=== PATIENT | female | born 1980 | race Hispanic/Latino ===

== ENCOUNTER 2021-04-25 10:13 | Inpatient (IN) | payer BC, SELFPAY ==
--- OUTSIDE RECORDS SUMMARY | 2021-04-25 10:15 | XMS REPORT | Continuity of Care Document ---
:1980 Author Organization [facility] t Address [address] [place] [address] Care Team Providers Name Role Phone Jd Mora MD Attending Clinician Problems This patient has no known problems. Allergies, Adverse Reactions, Alerts This patient has no known allergies or adverse reactions. Medications This patient has no known medications. Procedures This patient has no known procedures. Encounters Start End Encounter Admission Attending Care Care Encounter Source Date/Time Date/Time Type Type Clinicians Facility Department ID 2020-02-17 2020-02-17 Emergency Morgan [facility] [id number] 17:50:41 18:51:00 Jd Nicole [id number] [place] [id number] [place] [id number] Results This patient has no known results.
[2021-04-25 10:50] LABS: Urine Blood 3+ (Negative); Urine Glucose Trace (Negative); Urine Protein 3+ (Negative); Urine Specific Gravity >=1.030 (1.005-1.030)
[2021-04-25 11:08] LABS: Absolute Lymphocytes (CBC) 0.6 K/uL (0.7-4.9); Basophils % 0.1 % (0-1.3); Hematocrit 37.3 % (36.0-45.0); Lymphocytes % 4.7 % (15.3-44.8)
[2021-04-25 11:15] LABS: Urine Specific Gravity/Preg >1.030 (1.005-1.030)
[2021-04-25 11:18] LABS: Urine Bacteria >50 /HPF (<20)
[2021-04-25 11:20] LABS: Albumin 3.4 g/dL (3.4-5.0); Bilirubin Direct 0.7 mg/dL (0-0.2); Bilirubin Total 1.2 mg/dL (0.2-1.0); Potassium 4.1 mmol/L (3.5-5.1); Protein, Total 7.9 g/dL (6.4-8.2)
[2021-04-25] MEDS ORDERED: ONDANSETRON 4 MG/2 ML VIAL ONE (11:22)
[2021-04-25] MEDS ORDERED: KETOROLAC 30 MG/ML INJ ONE (11:22)
[2021-04-25] MEDS ORDERED: NA CHLORIDE 0.9% 1,000 ML ONE ×2 (11:22→15:38)
--- NOTE | 2021-04-25 11:42 | RAD REPORT ---
EXAM DESCRIPTION: CT - Abdomen Pelvis Wo Contrast - 04/25/2021 11:10 am CLINICAL HISTORY: Abdominal pain COMPARISON: None TECHNIQUE: Computed axial tomography of the abdomen and pelvis was obtained. IV and oral contrast we re not requested. All CT scans are performed using dose optimization technique as appropriate and may include automated exposure control or mA/KV adjustment according to patient size. FINDINGS: The evaluation of solid organs, vessels and bowel is limited secondary to the lack of con trast administration. The spleen measures 14 centimeters. The liver, pancreas, adrenals and kidneys appear grossly normal. The appendix is normal. There is no evidence of diverticulitis. An IUD is present within the uterine fundus. No adnexal mass. Tiny umbilical hernia contains fat IMPRESSION: Mild splenomegaly
[2021-04-25 11:46] LABS: Anisocytosis 1+; Blood Morphology Comment NOTED (NOT SEEN); Platelet Estimate ADEQ
--- NOTE | 2021-04-25 11:57 | EDPHYS ---
Physician Documentation [facility] Name: Nancy Freeman Age: 40 yrs Sex: Female : 1980 Arrival Date: 04/25/2021 Time: 10:16 Bed 23 Private MD: ED Physician Garland Grewal HPI: 04/25 11:59 This 40 yrs old Female presents to ER via Wheelchair with complaints of Cough, kb Nausea, Constipation, Fatigue. 11:59 The patient has not recently seen a physician. kb 11:59 The patient presents with abdominal pain in the left upper quadrant. Onset: The kb symptoms/episode began/occurred 5 day(s) ago. The symptoms do not radiate. Associated signs and symptoms: Pertinent positives: constipation, nausea. The symptoms are described as constant. Modifying factors: The symptoms are alleviated by nothing, the symptoms are aggravated by nothing. Severity of pain: At its worst the pain was moderate in the emergency department the pain is unchanged. The patient has not experienced similar symptoms in the past. Pt reports cough, nausea, malaise, low back pain for 5 days. States she had constipation last week and when she finally went to the restroom there was some bleeding, but bowel movements have been normal without bleeding since then. States she didn't have a bm yesterday or today. no fever. 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 - Social history:: Smoking status: Patient denies any tobacco usage or history of. ROS: 14:02 Cardiovascular: Negative for chest pain, palpitations, and edema. kb 14:02 Constitutional: Positive for chills, fatigue, malaise. 14:02 Abdomen/GI: Positive for abdominal pain, nausea, constipation. 14:02 Back: Positive for pain at rest. 14:02 All other systems are negative. Exam: 14:02 Constitutional: This is a well developed, well nourished patient who is awake, alert, kb and in no acute distress. Head/Face: Normocephalic, atraumatic. ENT: Moist Mucous membranes Cardiovascular: Regular rate and rhythm with a normal S1 and S2. No gallops, murmurs, or rubs. No pulse deficits. Respiratory: Respirations even and unlabored. No increased work of breathing, no retractions or nasal flaring. Skin: Warm, dry with normal turgor. Normal color. MS/ Extremity: Pulses equal, no cyanosis. Neurovascular intact. Full, normal range of motion. Neuro: Awake and alert, GCS 15, oriented to person, place, time, and situation. Moves all extremities. Normal gait. Psych: Awake, alert, with orientation to person, place and time. Behavior, mood, and affect are within normal limits. 14:02 Abdomen/GI: Inspection: obese Bowel sounds: normal, Palpation: soft, in all quadrants, moderate abdominal tenderness, in the left upper quadrant. 14:02 Back: pain, that is moderate, of the low back area, ROM is normal. Vital Signs: 10:22 BP 146 / 76; Pulse 106; Resp 18; Temp 98.5(O); Pulse Ox 99% on R/A; ph 10:45 BP 142 / 95; Pulse 118; Resp 20; Pulse Ox 97% ; vg1 11:15 BP 140 / 96; Pulse 103; Resp 18; Pulse Ox 99% ; vg1 12:15 BP 115 / 94; Pulse 100; Resp 16; Pulse Ox 98% on R/A; vg1 12:16 Pain 5/10; vg1 12:17 Weight 149.69 kg; Height 5 ft. 4 in. (162.56 cm); vg1 13:00 BP 110 / 72; Pulse 102; Resp 16; Pulse Ox 98% on R/A; vg1 13:45 BP 113 / 69; Pulse 95; Resp 16; Pulse Ox 99% on R/A; vg1 17:49 BP 126 / 88; Pulse 105; Pulse Ox 100% on R/A; mb4 12:17 Body Mass Index 56.64 (149.69 kg, 162.56 cm) vg1 MDM: 10:31 Patient medically screened. kb 11:51 Data reviewed: vital signs, nurses notes. Data interpreted: Pulse oximetry: on room air kb is 99 %. Interpretation: normal. 11:56 Counseling: I had a detailed discussion with the patient and/or guardian regarding: the kb historical points, exam findings, and any diagnostic results supporting the discharge/admit diagnosis, lab results, radiology results, the need for further work-up and treatment in the hospital. Physician consultation: Shiva Boateng was contacted at 11:56, regarding admission, to the medical/surgical unit. patient's condition, and will see patient in ED, shortly. 04/25 10:31 Order name: Basic Metabolic Panel; Complete Time: 11:31 kb 04/25 10:31 Order name: CBC with Diff; Complete Time: 11:47 kb 04/25 10:31 Order name: Hepatic Function; Complete Time: 11:31 kb 04/25 10:31 Order name: Lipase; Complete Time: 11:31 kb 04/25 10:50 Order name: Urine Dipstick-Ancillary; Complete Time: 10:54 EDMS 04/25 10:53 Order name: Urine Microscopic Only; Complete Time: 11:31 vg1 04/25 10:53 Order name: Urine --Ancillary (enter results); Complete Time: 11:31 bd 04/25 11:08 Order name: Abdomen ; Complete Time: 11:45 EDMS 04/25 11:43 Order name: Manual Differential; Complete Time: 11:47 EDMS 04/25 11:58 Order name: COVID-19 : Document "Date of Symptom Onset" if Symptomatic. kb 04/25 13:37 Order name: CREATININE WHOLE BLOOD; Complete Time: 13:37 EDMS 04/25 14:58 Order name: SARS-COV-2 RT PCR; Complete Time: 15:08 EDMS 04/25 10:31 Order name: IV Saline Lock; Complete Time: 10:53 kb 04/25 10:31 Order name: Labs collected and sent; Complete Time: 10:53 kb 04/25 10:37 Order name: Urine Dipstick-Ancillary (obtain specimen); Complete Time: 10:53 kb 04/25 12:04 Order name: Chest Single View XRAY; Complete Time: 13:12 kb Administered Medications: 11:14 Drug: NS 0.9% 1000 ml Route: IV; Rate: 1000 ml; Site: right antecubital; vg1 14:36 Follow up: IV Status: Completed infusion; IV Intake: 1000ml vg1 11:15 Drug: Zofran (Ondansetron) 4 mg Route: IVP; Site: right antecubital; vg1 12:16 Follow up: Response: No adverse reaction; Nausea unchanged vg1 11:17 Drug: Ketorolac 30 mg Route: IVP; Site: right antecubital; vg1 12:16 Follow up: Pain 5/10 Adult; Response: No adverse reaction; Pain is decreased vg1 12:16 Drug: Rocephin (cefTRIAXone) 1 grams Route: IV; Rate: calculated rate; Site: right vg1 antecubital; 14:35 Follow up: Response: No adverse reaction; IV Status: Completed infusion vg1 Disposition: 04/26 08:46 Co-signature as Attending Physician, Garland Grewal MD I agree with the assessment and kdr plan of care. Disposition Summary: 04/25/21 11:57 Hospitalization Ordered Hospitalization Status: Observation kb Provider: Shiva Boateng Condition: Stable kb Problem: new kb Symptoms: are unchanged kb Bed/Room Type: Standard kb Location: Telemetry/MedSurg (observation)(04/25/21 21:50) tl1 Room Assignment: [facility](04/25/21 21:50) tl1 Diagnosis - Splenomegaly, not elsewhere classified kb - Tubulo-interstitial nephritis, not specified as acute or chronic kb - UTI/ Urinary tract infection, site not specified kb - Acute kidney failure, unspecified kb Forms: - Medication Reconciliation Form kb - SBAR form kb Signatures: Dispatcher [employer] EDMS Omaira Daniels, PARTY BUS DRIVER-C PARTY BUS DRIVER-Garland Holt MD MD [facility] Nata Durbin RN RN Jessica Junior RN RN tl1 Alice Fernández, RN KIKI Gila Lazcano, RN RN vg1 Corrections: (The following items were deleted from the chart) 04/25 11:08 10:38 Abdomen Pelvis W Con+CT.RAD.BRZ ordered. EDMS EDMS 11:43 11:20 CBC Smear Scan ordered. EDMS EDMS 14:09 11:57 Telemetry/MedSurg (observation) kb ss 14:09 11:57 kb ss 21:50 14:09 BR ER HOLD ss tl1 21:50 14:09 ERHOLD- ss tl1
--- NOTE | 2021-04-25 11:57 | ER ---
Nurse's Notes [facility] Name: Nancy Freeman Age: 40 yrs Sex: Female : 1980 Arrival Date: 04/25/2021 Time: 10:16 Bed 23 Private MD: Diagnosis: Splenomegaly, not elsewhere classified;Tubulo-interstitial nephritis, not specified as acute or chronic;UTI/ Urinary tract infection, site not specified;Acute kidney failure, unspecified Presentation: 04/25 10:22 Chief complaint: Patient states: L sided abdominal pain, nausea, constipation, bright ph red rectal bleeding, chills, and sweating. Symptoms began Friday. Coronavirus screen: Client denies travel out of the [place] in the last 14 days. Ebola Screen: No symptoms or risks identified at this time. Initial Sepsis Screen: Does the patient meet any 2 criteria? No. Patient's initial sepsis screen is negative. Does the patient have a suspected source of infection? No. Patient's initial sepsis screen is negative. Risk Assessment: Do you want to hurt yourself or someone else? Patient reports no desire to harm self or others. Onset of symptoms was April 25, 2021. 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 - Social history:: Smoking status: Patient denies any tobacco usage or history of. Screenin:36 Abuse screen: Denies threats or abuse. Nutritional screening: No deficits noted. vg1 Tuberculosis screening: No symptoms or risk factors identified. Fall Risk No fall in past 12 months (0 pts). No secondary diagnosis (0 pts). IV access (20 points). Ambulatory Aid- Crutches/Cane/Walker (15 pts). Gait- Normal/Bed Rest/Wheelchair (0 pts) Mental Status- Oriented to own ability (0 pts). Total Burnette Fall Scale indicates Low Risk Score (25-44 pts). Fall prevention measures have been instituted. Side Rails Up X 2 Placed close to Nursing Station Family Present and informed to notify staff if they need to leave bedside. Assessment: 10:35 General: Appears in no apparent distress. uncomfortable, Behavior is calm, cooperative. vg1 Pain: Complains of pain in left upper quadrant and lower back Pain currently is 10 out of 10 on a pain scale. Pain began about a week ago Noted to be grimacing, moaning. Neuro: Level of Consciousness is awake, alert, obeys commands, Oriented to person, place, time, situation. Cardiovascular: Patient's skin is warm and dry. Respiratory: Reports cough that is Airway is patent Respiratory effort is even, unlabored. GI: Abdomen is round obese, Last BM was April 22, 2021. Reports nausea. : No signs and/or symptoms were reported regarding the genitourinary system. EENT: No signs and/or symptoms were reported regarding the EENT system. Derm: Skin is intact, is healthy with good turgor. Musculoskeletal: Circulation, motion, and sensation intact. 12:17 Reassessment: Patient appears in no apparent distress at this time. Patient and/or vg1 family updated on plan of care and expected duration. Pain level reassessed. Patient is alert, oriented x 3, equal unlabored respirations, skin warm/dry/pink. Pt states is still feeling nauseous and pain has subsided to 5/10 from 10/10. 13:00 Reassessment: Patient appears in no apparent distress at this time. No changes from vg1 previously documented assessment. Patient and/or family updated on plan of care and expected duration. Pain level reassessed. Patient is alert, oriented x 3, equal unlabored respirations, skin warm/dry/pink. 14:03 Reassessment: Pt resting with eyes closed. vg1 Vital Signs: 10:22 BP 146 / 76; Pulse 106; Resp 18; Temp 98.5(O); Pulse Ox 99% on R/A; ph 10:45 BP 142 / 95; Pulse 118; Resp 20; Pulse Ox 97% ; vg1 11:15 BP 140 / 96; Pulse 103; Resp 18; Pulse Ox 99% ; vg1 12:15 BP 115 / 94; Pulse 100; Resp 16; Pulse Ox 98% on R/A; vg1 12:16 Pain 5/10; vg1 12:17 Weight 149.69 kg; Height 5 ft. 4 in. (162.56 cm); vg1 13:00 BP 110 / 72; Pulse 102; Resp 16; Pulse Ox 98% on R/A; vg1 13:45 BP 113 / 69; Pulse 95; Resp 16; Pulse Ox 99% on R/A; vg1 17:49 BP 126 / 88; Pulse 105; Pulse Ox 100% on R/A; mb4 12:17 Body Mass Index 56.64 (149.69 kg, 162.56 cm) vg1 ED Course: 10:16 Patient arrived in ED. as 10:18 Omaira Daniels FNP-C is PHCP. kb 10:18 Garland Grewal MD is Attending Physician. kb 10:24 Triage completed. ph 10:26 Arm band placed on Patient placed in an exam room, on a stretcher. ph 10:30 Gila Lazcano RN is Primary Nurse. vg1 10:30 Inserted saline lock: 20 gauge in right antecubital area, using aseptic technique. vg1 ,using aseptic technique. completed by KIKI Corbin Blood collected. 10:36 Patient has correct armband on for positive identification. Bed in low position. Call vg1 light in reach. Side rails up X 1. 11:09 Abdomen In Process Unspecified. EDMS 11:57 Shiva Boateng is Hospitalizing Provider. kb 12:15 COVID swab sent to lab. vg1 12:43 Chest Single View XRAY In Process Unspecified. EDMS 14:36 No provider procedures requiring assistance completed. Patient admitted, IV remains in vg1 place. 15:56 Fall risk band placed. mb4 22:19 Report given to Karley Schroeder RN. vg1 Administered Medications: 11:14 Drug: NS 0.9% 1000 ml Route: IV; Rate: 1000 ml; Site: right antecubital; vg1 14:36 Follow up: IV Status: Completed infusion; IV Intake: 1000ml vg1 11:15 Drug: Zofran (Ondansetron) 4 mg Route: IVP; Site: right antecubital; vg1 12:16 Follow up: Response: No adverse reaction; Nausea unchanged vg1 11:17 Drug: Ketorolac 30 mg Route: IVP; Site: right antecubital; vg1 12:16 Follow up: Pain 5/10 Adult; Response: No adverse reaction; Pain is decreased vg1 12:16 Drug: Rocephin (cefTRIAXone) 1 grams Route: IV; Rate: calculated rate; Site: right vg1 antecubital; 14:35 Follow up: Response: No adverse reaction; IV Status: Completed infusion vg1 Intake: 14:36 IV: 1000ml; Total: 1000ml. vg1 Outcome: 11:57 Decision to Hospitalize by Provider. kb 14:36 Admitted to ER Hold. Please see [facility] for further documentation. vg1 14:36 Condition: stable 14:36 Instructed on the need for admit. 22:34 Patient left the ED. em Signatures: Dispatcher [employer] EDOmaira Saucedo, SATELLITE SPECIALIST-C ISIDORO-Demetrio Skaggs, RN RN em Shruthi Ritchie Patricia, RN RN Yessenia Wilson Victoria, RN RN vg1 Corrections: (The following items were deleted from the chart) 11:20 11:15 BP 140 / 96; Pulse 110bpm; Resp 18bpm; Pulse Ox 99%; vg1 vg1
[2021-04-25] MEDS ORDERED: CEFTRIAXONE/SWI 1gm 1 GM/10 ML SYR ONE (12:32)
--- NOTE | 2021-04-25 13:10 | RAD REPORT ---
EXAM DESCRIPTION: RAD - Chest Single View - 04/25/2021 12:43 pm CLINICAL HISTORY: COUGH COMPARISON: August 2009 TECHNIQUE: AP portable chest image was obtained 04/25/2021 12:43 pm . FINDINGS: Lungs are clear. Large body habitus accentuates chest findings. Heart and vasculature are normal. No measurable pleural effusion and no pneumothorax. No acute bony abnormality seen. No acute aortic findings suspected. IMPRESSION: No acute cardiopulmonary process. No significant change from comparison study.
--- NOTE | 2021-04-25 13:11 | P.HP ---
Certification for Inpatient Patient admitted to: Inpatient With expected LOS: >2 Midnights Practitioner: I am a practitioner with admitting privileges, knowledge of patient current condition, hospital course, and medical plan of care. Services: Services provided to patient in accordance with Admission requirements found in Title 42 Section 412.3 of the Code of Federal Regulations Patient History Date of Service: 04/25/21 Reason for admission: Left flank pain History of Present Illness: 40-year-old morbidly obese woman with a history of lupus and rheumatoid arthritis presented to the emergency department with a complaint of left flank pain, fever, chills, dry heaving of about 4 days duration. Patient also reports increased urinary frequency but denies dysuria. She has been taking Aleve for her pain without improvement. Her UA in the emergency department suggest UTI. Her creatinine is elevated to 2. CT abdomen and pelvis demonstrated mild splenomegaly. Patient has IUD in place. She also has mild leukocytosis. There is a concern for acute pyelonephritis with acute renal failure. Patient admitted for further management. Allergies No Known Allergies Allergy (Unverified 06/29/12 12:31) Home Medications: Adalimumab [Humira 40 MG/0.8 ML] 40 mg SQ Q-VISIT 12/19/14 Ferrous Sulfate [Feosol] 325 mg PO TID 12/19/14 Folic Acid 1 mg PO DAILY 12/19/14 Lisinopril/Hydrochlorothiazide [Zestoretic 20-12.5 mg Tablet] 1 each PO DAILY 12/19/14 Methotrexate [Methotrexate*] 20 mg PO EVERY 7TH DAY 12/19/14 Naproxen [Naprosyn] 500 mg PO BID 12/19/14 predniSONE [Deltasone] 5 mg PO DAILY 12/19/14 sulfaSALAzine [AZULFIDINE EN-tabs*] 1,000 mg PO BID 12/19/14 - Past Medical/Surgical History -: Lupus -: Rheumatoid arthritis -: Morbid obesity -: IUD implantation - Family History Mother -: Diabetes, Liver disease - Social History Smoking Status: Never smoker CD- Drugs: No Place of Residence: Home Review of Systems Other: Except as documented, all other systems reviewed and negative. Physical Examination - Physical Exam General: Alert, In no apparent distress, Oriented x3, Obese HEENT: Atraumatic, Normocephalic, PERRLA, Mucous membr. moist/pink, EOMI, Sclerae nonicteric Neck: Supple, JVD not distended Respiratory: Clear to auscultation bilaterally, Normal air movement Cardiovascular: No edema, Regular rate/rhythm, Normal S1 S2, No murmurs Capillary refill: <2 Seconds Gastrointestinal: Normal bowel sounds, Soft and benign, Non-distended, Tenderness (Right costovertebral angle tenderness) Musculoskeletal: No swelling, No tenderness Integumentary: No rashes, No erythema Neurological: Normal strength at 5/5 x4 extr, Cranial nerves 3-12 intact - Studies Laboratory Data (last 24 hrs) 04/25/21 10:47: WBC 13.00 H, Hgb 11.7 L, Hct 37.3, Plt Count 166 04/25/21 10:47: Sodium 134 L, Potassium 4.1, BUN 28 H, Creatinine 2.08 H, Glucose 122 H, Total Bilirubin 1.2 H, AST 31, ALT 28, Alkaline Phosphatase 132 H, Lipase 28 L Assessment and Plan - Problems (Diagnosis) (1) Acute pyelonephritis Current Visit: Yes Status: Acute (2) Acute renal failure Current Visit: Yes Status: Acute (3) Lupus Current Visit: Yes Status: Acute (4) Rheumatoid arthritis Current Visit: Yes Status: Acute (5) Morbid obesity Current Visit: Yes Status: Acute - Plan Admit to the medical floor Start supportive measures with IV hydration with IV normal saline. Monitor renal function for improvement. Obtain blood cultures. Urine culture. Start IV Rocephin. Follow culture results. Pain management as needed. Mild LFT elevation likely secondary to morbid obesity and possible hepatic steatosis. - Advance Directives Does patient have a Living Will: No Does patient have a Durable POA for Healthcare: No
[2021-04-25] MEDS: NA CHLORIDE 0.9% 1,000 ML IV SCH (15:03)
[2021-04-25] MEDS: HEPARIN 5000 UNIT/ML 1 ML VIAL SQ SCH (17:00)
[2021-04-25] MEDS ORDERED: HEPARIN 5000 UNIT/ML 1 ML VIAL ONE (17:50)
[2021-04-25] MEDS: MORPHINE 2 MG/ML SYR IV PRN (20:38)
[2021-04-25] MEDS ORDERED: MORPHINE 2 MG/ML SYR ONE (20:54)
[2021-04-25 22:46] VITALS: BMI 58.9
[2021-04-25] MEDS: ACETAMINOPHEN 500 MG TAB PO PRN (22:52)
[2021-04-26] MEDS: HEPARIN 5000 UNIT/ML 1 ML VIAL SQ SCH ×3 (00:41→16:22)
[2021-04-26] MEDS: NA CHLORIDE 0.9% 1,000 ML IV SCH ×2 (00:41→10:21)
[2021-04-26 06:19] LABS: Absolute Lymphocytes (CBC) 0.5 K/uL (0.7-4.9); Basophils % 0.3 % (0-1.3); Lymphocytes % 8.6 % (15.3-44.8); MPV 9.5 fL (7.6-11.3); RBC Red Blood Cell Count 4.21 M/uL (3.86-4.86)
[2021-04-26 06:30] LABS: Bilirubin Total 0.9 mg/dL (0.2-1.0); Phosphorus 3.1 mg/dL (2.5-4.9); Potassium 3.9 mmol/L (3.5-5.1); Protein, Total 6.5 g/dL (6.4-8.2)
[2021-04-26 06:31] LABS: Albumin 2.6 g/dL (3.4-5.0); Magnesium 2.1 mg/dL (1.8-2.4)
[2021-04-26] MEDS ORDERED: POTASSIUM CL SA 10 MEQ TAB PO ONE (07:09)
[2021-04-26] MEDS: CEFTRIAXONE/SWI 1gm 1 GM/10 ML SYR IVP SCH (07:59)
[2021-04-26] MEDS: MORPHINE 2 MG/ML SYR IV PRN (07:59)
[2021-04-26] MEDS: ONDANSETRON 4 MG/2 ML VIAL IV PRN ×2 (13:52→21:04)
[2021-04-26] MEDS: HYDROCODONE/APAP 5/325 MG TAB PO PRN ×2 (14:20→21:08)
--- NOTE | 2021-04-26 14:44 | P.PN ---
Subjective Date of Service: 04/26/21 Chief Complaint: Left flank pain Patient still complaining of left flank pain. No fever. Physical Examination - Vital Signs Temperature: 97.9 F Blood Pressure: 125/65 Pulse: 104 Respirations: 19 Pulse Ox (%): 98 - Physical Exam General: In no apparent distress, Oriented x3, Obese HEENT: Mucous membr. moist/pink Neck: JVD not distended Respiratory: Clear to auscultation bilaterally, Normal air movement Cardiovascular: No edema, Regular rate/rhythm, Normal S1 S2 Gastrointestinal: Soft and benign, Non-distended, No tenderness Musculoskeletal: Other (Left costovertebral angle tenderness) Integumentary: No rashes Neurological: Normal strength at 5/5 x4 extr Assessment And Plan - Current Problems (Diagnosis) (1) Acute pyelonephritis Current Visit: Yes Status: Acute (2) Acute renal failure Current Visit: Yes Status: Acute (3) Lupus Current Visit: Yes Status: Acute (4) Rheumatoid arthritis Current Visit: Yes Status: Acute (5) Morbid obesity Current Visit: Yes Status: Acute - Plan Renal function is improving with IV hydration. Continue IV fluid Monitor renal function for improvement. I am told her urine specimen contaminated with a lot of squamous cells. Will repeat urine culture. Follow blood cultures Continue IV Rocephin. Pain management as needed. Mild LFT elevation likely secondary to morbid obesity and possible hepatic steatosis.
[2021-04-26 16:40] LABS: Urine Appearance CLOUDY (Clear); Urine Bilirubin NEGATIVE (Negative); Urine Blood 3+ (Negative); Urine Color DK YELLOW (Yellow); Urine Glucose NEGATIVE (Negative); Urine Protein 2+ (Negative); Urine Specific Gravity 1.015 (1.005-1.030)
[2021-04-26 16:51] LABS: Urine Bacteria <20 /HPF (<20); Urine Mucus 1+ /HPF (NONE SEEN)
[2021-04-27] MEDS: ACETAMINOPHEN 500 MG TAB PO PRN (00:07)
[2021-04-27] MEDS: HEPARIN 5000 UNIT/ML 1 ML VIAL SQ SCH ×3 (00:08→18:09)
[2021-04-27] MEDS: NA CHLORIDE 0.9% 1,000 ML IV SCH ×3 (00:09→23:03)
[2021-04-27] MEDS: HYDROCODONE/APAP 5/325 MG TAB PO PRN ×5 (03:31→23:03)
[2021-04-27 06:08] LABS: Potassium 4.2 mmol/L (3.5-5.1)
[2021-04-27] MEDS: CEFTRIAXONE/SWI 1gm 1 GM/10 ML SYR IVP SCH (08:01)
[2021-04-27] MEDS: ONDANSETRON 4 MG/2 ML VIAL IV PRN (18:09)
[2021-04-28] MEDS: HEPARIN 5000 UNIT/ML 1 ML VIAL SQ SCH ×2 (01:00→08:40)
[2021-04-28] MEDS: NA CHLORIDE 0.9% 1,000 ML IV SCH ×2 (03:03→08:40)
[2021-04-28] MEDS: HYDROCODONE/APAP 5/325 MG TAB PO PRN ×2 (03:17→08:39)
[2021-04-28] MEDS: ONDANSETRON 4 MG/2 ML VIAL IV PRN ×2 (03:18→08:39)
[2021-04-28 04:15] VITALS: O2SAT 99
[2021-04-28] MEDS: ACETAMINOPHEN 500 MG TAB PO PRN (04:59)
[2021-04-28] MEDS: CEFTRIAXONE/SWI 1gm 1 GM/10 ML SYR IVP SCH (08:39)
[2021-04-28 09:54] VITALS: TEMP 97.2
--- NOTE | 2021-04-28 10:26 | EKG ---
Test Date: 2021-04-28 Test Time: 00:31:33 Supervisor Car Installations: [employer] MEASUREMENT RESULTS: Intervals: Rate: 99 NC: 126 QRSD: 88 QT: 330 QTc: 423 [place]: P: 66 NC: 126 QRS: 59 T: 35 INTERPRETIVE STATEMENTS: Normal sinus rhythm Normal ECG No previous ECG available for comparison Electronically Signed On 04-28-21 10:25:31 CDT by López Montanez
[2021-04-28] MEDS ORDERED: POLYETHYL GLY 3350 17 GM/DOSE PO PRN (11:17)
--- NOTE | 2021-04-28 11:27 | P.PN ---
Subjective Date of Service: 04/27/21 Chief Complaint: Left flank pain Patient states she feels better today. No fever. She is tolerating her diet. Physical Examination - Vital Signs Temperature: 97.2 F Blood Pressure: 144/84 Pulse: 88 Respirations: 18 Pulse Ox (%): 98 - Physical Exam General: In no apparent distress, Obese HEENT: Mucous membr. moist/pink Neck: JVD not distended Respiratory: Clear to auscultation bilaterally, Normal air movement Cardiovascular: No edema, Regular rate/rhythm, Normal S1 S2 Gastrointestinal: Normal bowel sounds, Soft and benign, Non-distended, No tender ness Musculoskeletal: No swelling Neurological: Normal strength at 5/5 x4 extr Assessment And Plan - Current Problems (Diagnosis) (1) Acute pyelonephritis Status: Acute (2) Acute renal failure Status: Acute (3) Lupus Status: Acute (4) Rheumatoid arthritis Status: Acute (5) Morbid obesity Status: Acute - Plan Renal function improving with IV hydration. Continue IV fluid Will repeat urine culture is pending. Follow blood cultures Continue IV Rocephin. Pain management as needed.
--- NOTE | 2021-04-28 11:30 | P.DS ---
Admission Date: 04/25/21 Discharge Date: 04/28/21 Disposition: ROUTINE DISCHARGE Discharge Condition: FAIR Reason for Admission: Left flank pain - Problems (1) Acute pyelonephritis Current Visit: Yes Status: Acute (2) Acute renal failure Current Visit: Yes Status: Acute (3) Lupus Current Visit: Yes Status: Acute (4) Rheumatoid arthritis Current Visit: Yes Status: Acute (5) Morbid obesity Current Visit: Yes Status: Acute Brief History of Present Illness: 40-year-old morbidly obese woman with a history of lupus and rheumatoid arthritis presented to the emergency department with a complaint of left flank pain, fever, chills, dry heaving of about 4 days duration. Patient also reports increased urinary frequency but denies dysuria. She has been taking Aleve for her pain without improvement. Her UA in the emergency department suggest UTI. Her creatinine is elevated to 2. CT abdomen and pelvis demonstrated mild splenomegaly. Patient has IUD in place. She also has mild leukocytosis. There was a concern for acute pyelonephritis with acute renal failure. Patient a dmitted for further management. Hospital Course: Patient admitted to the medical floor and treated with IV Rocephin for UTI. Her urine sample was contaminated. Repeat urine culture was obtained which showed mixed growth. Blood culture yielded no growth. Patient clinically improved with antibiotics. Her renal function also improved with IV fluid. Acute renal failure resolved. Patient has tolerated diet. Her symptoms including dry heaving has resolved. She is complaining of constipation for which she is prescribed senna and MiraLax. Patient clinically stable for discharge. She is discharged with Vantin to complete 7 days of treatment. Vital Signs/Physical Exam: Temp Pulse Resp BP Pulse Ox 97.2 F 88 18 144/84 H 98 04/28/21 11:27 04/28/21 11:27 04/28/21 11:27 04/28/21 11:27 04/28/21 11:27 General: Alert, In no apparent distress, Obese Neck: JVD not distended Respiratory: Clear to auscultation bilaterally, Normal air movement Cardiovascular: No edema, Regular rate/rhythm, Normal S1 S2 Gastrointestinal: Soft and benign, Non-distended, No tenderness Musculoskeletal: No swelling Integumentary: No rashes Neurological: Normal strength at 5/5 x4 extr Laboratory Data at Discharge: WBC 6.00 K/uL (4.3-10.9) D 04/26/21 05:53 Hgb 9.9 g/dL (12.0-15.0) L 04/26/21 05:53 Hct 31.0 % (36.0-45.0) L D 04/26/21 05:53 Plt Count 103 K/uL (152-406) L D 04/26/21 05:53 Sodium 140 mmol/L (136-145) 04/27/21 05:12 Potassium 4.2 mmol/L (3.5-5.1) 04/27/21 05:12 BUN 22 mg/dL (7-18) H 04/27/21 05:12 Creatinine 1.28 mg/dL (0.55-1.3) 04/27/21 05:12 Glucose 84 mg/dL (74-106) 04/27/21 05:12 Phosphorus 3.1 mg/dL (2.5-4.9) 04/26/21 05:53 Magnesium 2.1 mg/dL (1.8-2.4) 04/26/21 05:53 Total Bilirubin 0.9 mg/dL (0.2-1.0) 04/26/21 05:53 AST 32 U/L (15-37) 04/26/21 05:53 ALT 24 U/L (12-78) 04/26/21 05:53 Alkaline Phosphatase 126 U/L (45-117) H 04/26/21 05:53 Lipase 28 U/L (73-393) L 04/25/21 10:47 Home Medications: Lisinopril/Hydrochlorothiazide [Zestoretic 20-12.5 mg Tablet] 1 each PO DAILY 12/19/14 traMADol HCL [Ultram*] 50 mg PO BID 04/25/21 Cefpodoxime Proxetil 100 mg PO BID #10 tablet 04/28/21 Polyethyl Gly 3350 [Glycolax*] 17 gm PO DAILY PRN #30 udbot 04/28/21 Sennosides [Senokotxtra] 17.2 mg PO DAILY #60 tablet 04/28/21 New Medications: Cefpodoxime Proxetil 100 mg PO BID #10 tablet Polyethyl Gly 3350 [Glycolax*] 17 gm PO DAILY PRN #30 udbot PRN Reason: Constipation Sennosides [Senokotxtra] 17.2 mg PO DAILY #60 tablet Diet: AHA Activity: Ad norman Followup: NONE,NONE [Primary Care Provider] - 1 Week Time spent managing pt's care (in minutes): 34
[2021-04-28 18:52] VITALS: BP 144/84
== END 2021-04-28 12:45 | disposition home or self-care (01) | DRG 690 ==
LOC: ER 10:13 → ERHOLD 13:04 → 2ND 22:18
PROVIDERS: ADMIT Internal Medicine; ATTEND Internal Medicine
DX: N10 Acute pyelonephritis (principal); Z68.43 Body mass index [BMI] 50.0-59.9, adult; M32.9 Systemic lupus erythematosus, unspecified; E66.01 Morbid (severe) obesity due to excess calories; M06.9 Rheumatoid arthritis, unspecified; Z20.822 Contact with and (suspected) exposure to COVID-19
CPT/HCPCS: 36415; 71045; 74176; 80048; 80053; 80076; 81001; 81003; 81015; 81025; 82565; 83690; 83735; 84100; 85025; 87040; 87086; 87088; 87205; 93005; 94760; 96361; 96365; 96366; 96375; 99285; J0696; J1644; J2270; J2405; J7030; U0003

== ENCOUNTER 2023-07-11 15:54 | Emergency (ER) | payer OTHER ==
--- OUTSIDE RECORDS SUMMARY | 2023-07-11 15:57 | XMS REPORT | Continuity of Care Document ---
:1980 Author Organization [facility] t Address [address] [place] [id number] Care Team Providers Name Role Phone VERENICE ACEVEDO Primary Care Physician Unavailable VERENICE ACEVEDO Attending Clinician Unavailable Jd Mora MD Attending Clinician Problems Condition Condition Condition Status Onset Resolution Last Treating Co mments Source Name Details Category Date Date Treatment Clinician Date Positive Positive Disease Active 2017-10 Unive rs DEBBI DEBBI 1-14 ity of (antin[place] Medical antibody) antibody) Bran ch Fatigue, Fatigue, Disease Active 2017-10 Unive rs unspecifie unspecifie 1-14 it y of d type d type 00:00: [place] 00 Medical Branch Positive Positive Disease Active 2017-10 Unive rs QuantiFERO QuantiFERO 0-19 it y of N-TB Gold N-TB Gold [place] test test 00 [place] Elevated Elevated Disease Active 2017-10 Unive rs aldolase aldolase 0-18 ity of level level 00:00: [place] 00 Medical Branch Hypovitami Hypovitami Disease Active 2017-10 U nivers nosis D: nosis D: 0-17 ity of 9(07/2018) 9(07/2018) [place] [facility] [place] prison roasterman Disease Active 2017-10 Uni vers (current) (current) 0-16 ity of use of use of 00:00: [place] systemic systemic 00 Medica l steroids steroids Branch At risk At risk Disease Active 2017-10 Univers for bone for bone 0-16 ity of density density 00:00: [place] loss loss 00 Medical Branch Immunizati Immunizati Disease Active 2017-10 U nivers on on 0-16 ity of counseling counseling 00:[place] [facility] [place] Fibromyalg Fibromyalg Disease Active 2017-10 U nivers ia ia 0-16 ity of 00:00: [place] [facility] Goiter Goiter Disease Active Univers 5-28 ity of 00:00: [place] [facility] Hypermenor Hypermenor Disease Active 2013-10 U nivers jomar jomar 2-22 ity of 00:00: [place] 00 [facility] Branch KENDRICK (iron KENDRICK (iron Disease Active 2013-10 Uni vers deficiency deficiency 2-22 it y of anemia) anemia) 00:00: [place] 00 Medical Branch Patient Patient Disease Active 2013-10 Univers takes takes 2-22 ity of NSAID NSAID 00:00: [place] (non-stero (non-stero 00 Me dical id id Branch anti-infla anti-infla mmatory mmatory drug) drug) NSAID NSAID Disease Active 2013-10 Univers long-term long-term 0-13 ity of use use 00:00: [place] [facility] Branch H/O H/O Disease Active 2013-10 Univers immunosupp immunosupp 0-09 it y of ressive ressive 00:00: [place] therapy therapy 00 [facility] H/O H/O Disease Active 2013-10 Univers steroid steroid 0-09 ity of therapy therapy 00:00: [place] 00 [facility] Branch JEFFERSON JEFFERSON Disease Active 2013-10 Overview: Univer s (obstructi (obstructi 0-09 01/18/2012 ity of ve sleep ve sleep 00:00: ; RDI [place] apnea) apnea) 00 23.2 ( [facility] Moderate Branch JEFFERSON) Now Severe 10/2014 - AHI 43- needs repeat CPAP titration - unaccepta ble grade titration Abnormal Abnormal Disease Active Unive rs weight weight 3- ity of gain gain 00:00: [place] [facility] 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 3- ity of 00:00: [place] 00 Medical Branch 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 3- it y of s s 00:00: [place] [facility] Pain in Pain in Disease Active Univers joint, joint, 3- ity of multiple multiple 00:00: [place] sites sites 00 Medical Branch Muscle Muscle Disease Active Univers weakness weakness 3 ity of 00:00: [place] 00 [facility] Abnormal Abnormal Disease Active Unive rs laboratory laboratory 3 it y of test test 00:00: [place] result result [facility] Morbid Morbid Disease Active Univers obesity obesity ity of [facility] BMI BMI Disease Active Univers 45.0-49.9, 45.0-49.9, it y of adult adult [facility] Rheumatoid Rheumatoid Disease Active U nivers arthritis arthritis it[place] of involving [place] multiple multiple Medica l sites with sites with Br anch positive positive rheumatoid rheumatoid factor: RF factor: RF 144 144 Essential Essential Disease Active Uni vers hypertensi hypertensi it y of on on [facility] Anemia Anemia Disease Active Univers ity of [facility] Allergies, Adverse Reactions, Alerts Allergy Allergy Status Severity Reaction(s) Onset Inactive Treating Comm ents Source Name Type Date Date Clinician NO KNOWN Drug Active Univers ALLERGIE Class ity of S [facility] Social History Social Habit Start Date Stop Date Quantity Comments Source Sex Assigned At Universit y of [facility] Exposure to Not sure [place] of SARS-CoV-2 [facility] (event) [place] Alcohol intake 2018-12-22 2018-12-22 University of 00:00:00 00:00:00 [facility] Alcohol Comment 2018-08-24 2018-08-24 special occassions U niversity of 00:00:00 00:00:00 [facility] Tobacco Comment 2014-08-04 2014-08-04 social - 1 cig Unive rsity of 00:00:00 00:00:00 once a week x [place] Medic al 5years Branch History of 2011-08-04 Cigarette Smoker Universi ty of tobacco use 00:00:00 [facility] Smoking Status Start Date Stop Date Source Former smoker 2018-12-22 00:00:00 2018-12-22 00:00:00 Universi ty of [facility] Medications Ordered Filled Start Stop Current Ordering Indication Dosage Frequency Signature Comments Components Source Medication Medication Date Date Medication? Clinician (SIG) Name Name LISINOPRIL- Yes [id number] TAKE 1 Univers HYDROCHLORO 9-24 TABLET BY ity of THIAZIDE 00:00: MOUTH [place] 20-12.5 mg 00 EVERY DAY Medi birdie per tablet Branch acetaminoph Yes 1300mg Take 1,300 Univers en (TYLENOL 2-26 mg by ity of ARTHRITIS 18:26: mouth [place] PAIN) 650 03 every 8 Medical mg CR (eight) Branch tablet hours as needed for Pain. ibuprofen Yes 1200mg Take 1,200 Univers 600 mg 2-26 mg by ity of tablet 18:26: mouth [place] 03 every 6 Medical (six) Branch hours as needed. predniSONE Yes 5mg Take 5 mg Un an (DELTASONE) 2-26 by mouth ity of 5 mg tablet 18:17: [place]. [place] 07 [place] hydroxychlo Yes [id number] 200mg Take 1 Univers roquine 2-26 tablet by ity of (PLAQUENIL) 00:00: mouth 2 [place] 200 mg 00 (two) Medical tablet times Branch daily with meals. predniSONE Yes [id number] Take 1 Univers 5 mg tablet 2-26 tablet ity of 00:00: daily [place] 00 [facility] ergocalcife 2017-10 Yes [id number] Take 1 Un an rol, 0-22 capsule by ity of vitamin d2, 00:00: mouth [place] 50,000 unit 00 weekly. Medic al capsule Branch predniSONE 2017-10 Yes Take 1 Unive rs 5 mg tablet 0-16 tablet ity of 00:00: along with [place] 00 4 mg Medical prednisone Branch predniSONE 2017-10 Yes Take 4 Unive rs 1 mg tablet 0-16 tablets ity o f 00:00: along with [place] 00 5mg Medical prednisone [place] daily Immunizations Ordered Filled Immunization Date Status Comments Sour e Immunization Name Name HEP B, Adult Dosage 2018-08-24 Completed Unive rsity of 00:00:00 [facility] Influenza Virus 2018-08-24 Completed Universit y of Vaccine Quad IM 3+ 00:00:00 [facility] Vital Signs Vital Name Observation Time Observation Value Comments Source Systolic blood 2020-02-17 22:51:00 142 mm[Hg] Univer sity of pressure [facility] Diastolic blood 2020-02-17 22:51:00 62 mm[Hg] Unive rsity of pressure [facility] Heart rate 2020-02-17 22:51:00 106 /min Universi ty of [facility] Body temperature 2020-02-17 22:51:00 36.56 Vanessa Univ ersity of [facility] Respiratory rate 2020-02-17 22:51:00 19 /min Univ ersity of [facility] Body height 2020-02-17 22:51:00 162.6 cm Universi ty of [facility] Body weight 2020-02-17 22:51:00 172.367 kg Universi ty of [place] Medical [place] BMI 2020-02-17 22:51:00 65.23 kg/m2 Universi ty of [facility] Oxygen saturation in 2020-02-17 22:51:00 95 /min University of Arterial blood by [facility] Pulse oximetry Branch Systolic blood 2020-02-17 22:51:00 142 mm[Hg] Univer sity of pressure [facility] Diastolic blood 2020-02-17 22:51:00 62 mm[Hg] Unive rsity of pressure [facility] Heart rate 2020-02-17 22:51:00 106 /min Universi ty of [facility] Body temperature 2020-02-17 22:51:00 36.56 Vanessa [place] [facility] ersity of [facility] Respiratory rate 2020-02-17 22:51:00 19 /min [place] [facility] ersity of [facility] Body height 2020-02-17 22:51:00 162.6 cm Universi ty of [facility] Body weight 2020-02-17 22:51:00 172.367 kg Universi ty of [facility] BMI 2020-02-17 22:51:00 65.23 kg/m2 Universi ty of [facility] Oxygen saturation in 2020-02-17 22:51:00 95 /min University of Arterial blood by [facility] Pulse oximetry Branch Procedures This patient has no known procedures. Encounters Start End Encounter Admission Attending Care Care Encounter Source Date/Time Date/Time Type Type Clinicians Facility Department ID 2022-08-26 Outpatient [facility] [id number] [place] 14:10:30 [id number] Health 2021-08-23 Emergency [facility] [id number] Univers 18:52:55 ity [facility] 2022-12-12 2022-12-12 Outpatient Shankar ACEVEDO [facility] [id number] Univers 14:30:00 14:30:00 VERENICE navarro [facility] 2020-02-17 2020-02-17 Emergency [facility] [id number] 17:50:41 18:51:00 Jd Nicole [id number] [place] [id number] [place] [id number] 2020-02-17 2020-02-17 Emergency [facility] [id number] [facility] 17:50:41 18:51:00 Jd Nicole [id number] i ty of [place] [id number] [facility] [id number] [facility] 084 Branch Results This patient has no known results.
[2023-07-11 16:33] LABS: Absolute Lymphocytes (CBC) 1.9 K/uL (0.7-4.9); Hematocrit 39.7 % (36.0-45.0); Lymphocytes % 13.3 % (15.3-44.8); MCV 74.9 fL (80-100); MPV 8.4 fL (7.6-11.3); Platelets 241 thou/uL (152-406)
[2023-07-11] MEDS ORDERED: KETOROLAC 30 MG/ML INJ ONE (16:39)
[2023-07-11] MEDS ORDERED: NA CHLORIDE 0.9% 1,000 ML ONE (16:39)
[2023-07-11 16:48] LABS: Albumin 3.7 g/dL (3.4-5.0); Bilirubin Total 0.6 mg/dL (0.2-1.0); Protein, Total 7.7 g/dL (6.4-8.2)
--- NOTE | 2023-07-11 17:00 | RAD REPORT ---
EXAM DESCRIPTION: CT - Head Brain Wo Cont - 07/11/2023 4:46 pm CLINICAL HISTORY: Headache COMPARISON: none TECHNIQUE: Computed axial tomography of the head was obtained. IV contrast was not requested. All CT scans are performed using dose optimization technique as appropriate and may include automated exposure control or mA/KV adjustment according to patient size. FINDINGS: An intracranial bleed is not seen The ventricles are normal in caliber No significant hypodense areas within the brain visualized No extra-axial fluid collection is noted. Fluid within the sinuses/ mastoids is not seen IMPRESSION: No acute intracranial abnormality is seen If patient's symptoms persist MRI of the brain would be recommended
[2023-07-11 18:13] LABS: Specific Gravity > 1.030 (1.005-1.030); Urine Bacteria >50 /HPF (<20); Urine Bilirubin NEGATIVE (Negative); Urine Blood Negative (Negative); Urine Clarity Extremely Turbid (Clear); Urine Color Yellow (Yellow); Urine Glucose NEGATIVE (Negative); Urine Mucus 2+ /HPF (None Seen); Urine Protein 1+ (Negative); Urine RBC <5 /HPF (None Seen); Urine Urobilinogen 3+ (Normal)
--- NOTE | 2023-07-11 18:52 | ER ---
Nurse's Notes [facility] Name: Nancy Freeman Age: 42 yrs Sex: Female : 1980 Arrival Date: 07/11/2023 Time: 15:54 Bed 18 Private MD: Diagnosis: Headache;Essential (primary) hypertension;Leukocytosis Presentation: 07/11 16:14 Chief complaint: Patient states: OLIVIA and low back pain. Coronavirus screen: headache, jl7 Client presents with at least one sign or symptom that may indicate coronavirus-19. Ebola Screen: No symptoms or risks identified at this time. Initial Sepsis Screen: Does the patient meet any 2 criteria? No. Patient's initial sepsis screen is negative. Does the patient have a suspected source of infection? No. Patient's initial sepsis screen is negative. Risk Assessment: Do you want to hurt yourself or someone else? Patient reports no desire to harm self or others. Onset of symptoms is unknown. 16:14 Method Of Arrival: Ambulatory [facility] 16:14 Acuity: ELISABETH 3 jl7 Triage Assessment: 16:16 Headache History: The patient has had previous headaches and this one is more severe jl7 than previous episodes. General: Appears in no apparent distress. uncomfortable, Behavior is calm, cooperative, appropriate for age. Pain: Complains of pain in headache Pain currently is 8 out of 10 on a pain scale. at worst was 10 out of 10 on a pain scale. Pain began gradually, Also complains of nausea. Neuro: Level of Consciousness is awake, alert, Oriented to person, place, time, situation. 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 - Social history:: Smoking status: Patient/guardian denies using tobacco. Screenin:17 [facility] ED Fall Risk Assessment (Adult) History of falling in the last 3 months, ap3 including since admission No falls in past 3 months (0 pts). Abuse screen: Denies threats or abuse. Nutritional screening: No deficits noted. Tuberculosis screening: No symptoms or risk factors identified. Assessment: 18:17 General: Appears in no apparent distress. Behavior is calm, cooperative, appropriate ap3 for age. Pain: Complains of pain in forehead. Neuro: Level of Consciousness is awake, alert, obeys commands, Oriented to person, place, time, situation, Appropriate for age. Cardiovascular: Patient's skin is warm and dry. Respiratory: Airway is patent Respiratory effort is even, unlabored, Respiratory pattern is regular, symmetrical. Vital Signs: 16:14 BP 149 / 99; Pulse 78; Resp 17; Temp 98.4; Pulse Ox 100% ; Weight 145.15 kg; Height 5 jl7 ft. 6 in. ; Pain 8/10; 18:16 Pulse 98; Resp 17; Pulse Ox 100% ; ap3 18:18 BP 135 / 97; ap3 16:14 Body Mass Index 51.65 (145.15 kg, 167.64 cm) jl7 16:14 Pain Scale: Adult jl7 ED Course: 15:57 Patient arrived in ED. im 15:58 Yoandy Virgen DO is Attending Physician. ms3 16:06 Adelita Ibarra, RN is Primary Nurse. ap3 16:16 Triage completed. jl7 16:16 Arm band placed on right wrist. jl7 16:47 CT Head Brain wo Cont In Process Unspecified. EDMS 18:17 Patient has correct armband on for positive identification. Bed in low position. Call ap3 light in reach. Side rails up X 1. 19:02 Provided Education on: discharge education. ap3 19:02 No provider procedures requiring assistance completed. IV discontinued, intact, ap3 bleeding controlled, No redness/swelling at site. Pressure dressing applied. Administered Medications: 16:32 Drug: NS 0.9% IV 1000 ml Route: IV; Rate: 1 bolus; Site: right antecubital; ap3 16:32 Drug: Ketorolac IVP 10 mg 10 mg Route: IVP; Site: right antecubital; ap3 18:17 Follow up: Response: No adverse reaction ap3 Medication: 18:18 VIS not applicable for this client. ap3 Outcome: 18:52 Discharge ordered by . ms3 19:02 Discharged to home ambulatory. ap3 19:02 Condition: good 19:02 Discharge instructions given to patient, Instructed on discharge instructions, follow up and referral plans. Demonstrated understanding of instructions, follow-up care, medications, Prescriptions given X 1. 19:03 Patient left the ED. ap3 Signatures: Dispatcher [employer] EDMS Emerald Garcias RN RN jl7 Adelita Ibarra RN RN ap3 Yoandy Virgen DO DO ms3 Julianna Lewis
--- NOTE | 2023-07-11 18:52 | EDPHYS ---
Physician Documentation [facility] Name: Nancy Freeman Age: 42 yrs Sex: Female : 1980 Arrival Date: 07/11/2023 Time: 15:54 Bed 18 Private MD: ED Physician Yoandy Virgen HPI: 07/11 16:12 This 42 yrs old Female presents to ER via Unassigned with complaints of ms3 Headache, Low Back Pain. 16:12 42-year-old female with past medical history of rheumatoid arthritis, lupus, ms3 hypertension presents for right frontal headache that is described as pressure and rated 8/10. Patient states she has taken Aleve and tramadol for the pain with some improvement. Patient states the pain becomes worse with light. Patient denies alleviating factors. Patient endorses nausea. Patient denies vomiting.. 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 - Social history:: Smoking status: Patient/guardian denies using tobacco. ROS: 16:12 Constitutional: Negative for fever, and chills. Neck: Negative for injury, pain, and ms3 swelling, Cardiovascular: Negative for chest pain, and palpitations. Respiratory: Negative for shortness of breath, cough, wheezing, and pleuritic chest pain, Abdomen/GI: Negative for abdominal pain, nausea, vomiting, diarrhea, and constipation, MS/Extremity: Negative for injury and deformity. 16:12 Back: Positive for Left flank pain. 16:12 Neuro: Positive for headache. 16:12 All other systems are negative. Exam: 16:12 Constitutional: This is a well developed, well nourished patient who is awake, alert, ms3 and in no acute distress. Head/Face: Normocephalic, atraumatic. Chest/axilla: Normal chest wall appearance and motion. Nontender with no deformity. Cardiovascular: Regular rate and rhythm with a normal S1 and S2. No gallops, murmurs, or rubs. Normal PMI, no JVD. No pulse deficits. Respiratory: Lungs have equal breath sounds bilaterally, clear to auscultation and percussion. No rales, rhonchi or wheezes noted. No increased work of breathing, no retractions or nasal flaring. Abdomen/GI: Soft, non-tender, with normal bowel sounds. No distension or tympany. No guarding or rebound. No evidence of tenderness throughout. Skin: Warm, dry with normal turgor. Normal color with no rashes, no lesions, and no evidence of cellulitis. MS/ Extremity: Pulses equal, no cyanosis. Neurovascular intact. Full, normal range of motion. Neuro: Awake and alert, GCS 15, oriented to person, place, time, and situation. Cranial nerves II-XII grossly intact. Motor strength 5/5 in all extremities. Sensory grossly intact. Cerebellar exam normal. Normal gait. 16:12 Back: pain, that is mild, ROM is normal, normal spinal alignment noted, CVA tenderness, that is mild, is noted on the left, vertebral tenderness, is not appreciated. Vital Signs: 16:14 BP 149 / 99; Pulse 78; Resp 17; Temp 98.4; Pulse Ox 100% ; Weight 145.15 kg; Height 5 jl7 ft. 6 in. ; Pain 8/10; 18:16 Pulse 98; Resp 17; Pulse Ox 100% ; ap3 18:18 BP 135 / 97; ap3 16:14 Body Mass Index 51.65 (145.15 kg, 167.64 cm) jl7 16:14 Pain Scale: Adult jl7 MDM: 16:10 Patient medically screened. ms3 16:12 Differential diagnosis: COVID versus UTI versus headache versus intracranial hemorrhage.ms3 18:52 Data reviewed: vital signs, nurses notes, lab test result(s), radiologic studies, and ms3 as a result, I will discharge patient. I considered the following discharge prescriptions or medication management in the emergency department Medications were administered in the Emergency Department. See MAR. Independent interpretation of the following test(s) in the Emergency Department CT Scan: My interpretation is CT head without contrast images reviewed by me do not reveal intracranial hemorrhage. Care significantly affected by the following chronic conditions: Hypertension, Lupus, rheumatoid arthritis. Counseling: I had a detailed discussion with the patient and/or guardian regarding the historical points, exam findings, and any diagnostic results supporting the discharge/admit diagnosis, lab results, radiology results, the need for outpatient follow up, to return to the emergency department if symptoms worsen or persist or if there are any questions or concerns that arise at home. ED course: Discussed labs, imaging with the patient. Urine with bacteria; however, no leukocytes or red blood cells present. Skin cells are present, likely contaminated specimen. Patient to follow-up with primary care physician in 2 to 3 days. Patient understands agrees with plan. All questions were answered. Discussed return precautions with patient to include fevers, vomiting, abdominal pain, worsening symptoms, or any other concerns.. 07/11 16:11 Order name: CBC with Diff; Complete Time: 17:16 ms3 07/11 16:11 Order name: CMP; Complete Time: 17:16 ms3 07/11 16:11 Order name: COVID-19 SARS RT PCR; Complete Time: 17:16 ms3 07/11 16:11 Order name: Urinalysis w/ reflexes; Complete Time: 18:20 ms3 07/11 16:11 Order name: CT Head Brain wo Cont; Complete Time: 17:16 ms3 Administered Medications: 16:32 Drug: NS 0.9% IV 1000 ml Route: IV; Rate: 1 bolus; Site: right antecubital; ap3 16:32 Drug: Ketorolac IVP 10 mg 10 mg Route: IVP; Site: right antecubital; ap3 18:17 Follow up: Response: No adverse reaction ap3 Disposition Summary: 07/11/23 18:52 Discharge Ordered Location: Home ms3 Condition: Stable ms3 Diagnosis - Headache ms3 - Essential (primary) hypertension ms3 - Leukocytosis ms3 Followup: ms3 - With: Private Physician - When: 2 - 3 days - Reason: Recheck today's complaints Discharge Instructions: - Discharge Summary Sheet ms3 - General Headache Without Cause ms3 - Hypertension, Adult, [id number] ms3 Forms: - Medication Reconciliation Form ms3 - Thank You Letter ms3 - Antibiotic Education ms3 - Prescription Opioid Use ms3 - Patient Portal Instructions ms3 - Leadership Thank You Letter ms3 Prescriptions: - ondansetron 4 mg Oral Tablet,disintegrating - take 1 tablet by ORAL route every 8 hours for 5 days; 15 tablet; Refills: 0, ms3 Product Selection Permitted Signatures: Dispatcher [facility] HospitalEmerald Sanchez RN RN jl7 Adelita Ibarra RN RN ap3 Yoandy Virgen DO DO ms3
[2023-07-11 19:39] VITALS: TEMP 98.4; O2SAT 100
[2023-07-11 19:41] VITALS: BP 135/97
== END 2023-07-11 19:03 | disposition home or self-care (01) ==
LOC: ER 15:54
DX: R51.9 Headache, unspecified (principal); I10 Essential (primary) hypertension; D72.829 Elevated white blood cell count, unspecified; Z20.822 Contact with and (suspected) exposure to COVID-19
CPT/HCPCS: 85025; 81001; 36415; 80053; 87635; 70450; 96374; 99284; J7030